=== PATIENT | female | born 1945 | race Caucasian/White ===

== ENCOUNTER 2025-04-17 23:49 | Emergency (ER) | payer MEDICARE ==
[2025-04-18 00:06] VITALS: RESP 18
[2025-04-18] MEDS: DIPH,PERTUS(ACELL)TETVAC-LF 0.5 ML VIAL IM ONE (01:09)
--- NOTE | 2025-04-18 01:49 | CT ---
EXAM: CT Head Without Intravenous Contrast CLINICAL HISTORY: ITS.REASON CT Reason: fall TECHNIQUE: Axial computed tomography images of the head/brain without intravenous contrast. CTDI is 45 mGy and DLP is 1007 mGy-cm. This CT exam was performed using one or more of the following dose reduction techniques: automated exposure control, adjustment of the mA and/or kV according to patient size, and/or use of iterative reconstruction technique. COMPARISON: No relevant prior studies available. FINDINGS: Brain: No hemorrhage or mass effect. Ventricles: No hydrocephalus. Bones/joints: Unremarkable. Soft tissues: Posterior scalp swelling. Sinuses: No air fluid level. Mastoid air cells: Clear. IMPRESSION: No acute findings in the head/brain. EXAM: CT Cervical Spine Without Intravenous Contrast CLINICAL HISTORY: ITS.REASON CT Reason: fall TECHNIQUE: Axial computed tomography images of the cervical spine without intravenous contrast. CTDI is 11 mGy and DLP is 327 mGy-cm. This CT exam was performed using one or more of the following dose reduction techniques: automated exposure control, adjustment of the mA and/or kV according to patient size, and/or use of iterative reconstruction technique. COMPARISON: No relevant prior studies available. FINDINGS: Vertebrae: No acute fracture. Chronic minimal wedging deformities T1, T2, T3, T4. Discs/spinal canal/neural foramina: degenerative changes. Soft tissues: No prevertebral swelling. IMPRESSION: No acute fracture or subluxation.
--- NOTE | 2025-04-18 02:19 | ED ---
Fall HPI - General Chief Complaint: Fall Stated Complaint: Fall Time Seen by Provider: 04/18/25 00:21 Source: EMS Mode of arrival: EMS - History of Present Illness Initial Comments: 79-year-old female presenting with chief complaint of head injury. Patient had a trip and fall and hit the back of her head on a concrete step. No loss of consciousness or blood thinners. She does have a laceration to the back of her scalp. The bleeding is well-controlled at this time. No nausea or vomiting. C-collar was placed by EMS. No numbness or tingling or weakness in the extremities. No extremity pain. No vision or hearing changes. She does endorse a headache. - Related Data Allergies Allergy/AdvReac Type Severity Reaction Status Date / Time No Known Allergies Allergy Verified 04/18/25 00:06 Review of Systems ROS Statement: Those systems with pertinent positive or pertinent negative responses have been documented in the HPI. ROS Other: All systems not noted in ROS Statement are negative. Past Medical History Past Medical History: Hypertension History of Any Multi-Drug Resistant Organisms: None Reported Past Surgical History: Cholecystectomy, Hysterectomy, Tonsillectomy Past Psychological History: Anxiety Smoking Status: Never smoker Past Alcohol Use History: None Reported Past Drug Use History: None Reported General Exam Limitations: no limitations General appearance: alert, in no apparent distress Expanded Head exam: Present: laceration (2 small 1 cm lacerations to the scalp) Eye exam: Present: normal appearance, EOMI. Absent: periorbital swelling Neck exam: Present: normal inspection (Patient in c-collar) Respiratory exam: Absent: respiratory distress Cardiovascular Exam: Present: regular rate Extremities exam: Present: normal inspection, full ROM Neurological exam: Present: alert, oriented X3 Psychiatric exam: Present: normal affect, normal mood Skin exam: Present: warm, dry, normal color Course Vital Signs 04/18/25 04/18/25 04/18/25 00:00 01:06 02:00 Temperature 98.8 F Pulse Rate 78 69 76 Respiratory 18 18 18 Rate Blood Pressure 193/69 173/64 165/66 O2 Sat by Pulse 100 98 98 Oximetry 04/18/25 02:45 Temperature 98.7 F Pulse Rate 74 Respiratory 18 Rate Blood Pressure 160/65 O2 Sat by Pulse 100 Oximetry Procedures - Laceration Laceration #1 Consent Obtained: verbal consent Indication: laceration Site: scalp Size (cm): 1 Description: linear Depth: simple, single layer Type of Sutures: other ([place]) Number of Sutures: 1 Patient Tolerated Procedure: well, no complications Laceration #2 Consent Obtained: verbal consent Indication: laceration Site: scalp Size (cm): 1 Description: linear Depth: simple, single layer Type of Sutures: other (salazar) Number of Sutures: 1 Patient Tolerated Procedure: well, no complications Medical Decision Making - Medical Decision Making Was pt. sent in by a medical professional or institution (CASSIE Murillo, CALL CENTER DISPATCHER, urgent care, hospital, or senior living...) When possible be specific @ -No Did you speak to anyone other than the patient for history (EMS, parent, family, police, friend...)? What history was obtained from this source @ -No Did you review nursing and triage notes (agree or disagree)? Why? @ -I reviewed and agree with nursing and triage notes Were old charts reviewed (outside hosp., previous admission, EMS record, old EKG, old radiological studies, urgent care reports/EKG's, senior living records)? Report findings @ -No old charts were reviewed Differential Diagnosis (chest pain, altered mental status, abdominal pain women, abdominal pain men, vaginal bleeding, weakness, fever, dyspnea, syncope, headache, dizziness, GI bleed, back pain, seizure, CVA, palpatations, mental health, musculoskeletal)? @ -Differential includes uncomplicated head injury, concussion, fracture, hemorrhage, not noninclusive list EKG interpreted by me (3pts min.). @ -As above X-rays interpreted by me (1pt min.). @ -None done CT interpreted by me (1pt min.). @ -CT shows no acute intracranial process and no acute fracture or subluxation of the cervical spine U/S interpreted by me (1pt. min.). @ -None done What testing was considered but not performed or refused? (CT, X-rays, U/S, labs)? Why? @ -None What meds were considered but not given or refused? Why? @ -None Did you discuss the management of the patient with other professionals (professionals i.e. CASSIE Murillo, CALL CENTER DISPATCHER, lab, RT, psych nurse, social work case manager, lawyer probate, teacher, development officer, case preparer and liner)? Give summary @ -No Was smoking cessation discussed for >3mins.? @ -No Was critical care preformed (if so, how long)? @ -No Were there social determinants of health that impacted care today? How? (Homelessness, low income, unemployed, alcoholism, drug addiction, transportation, low edu. Level, literacy, decrease access to med. care, fdc, rehab)? @ -No Was there de-escalation of care discussed even if they declined (Discuss DNR or withdrawal of care, Hospice)? DNR status @ -No What co-morbidities impacted this encounter? (DM, HTN, Smoking, COPD, CAD, Cancer, CVA, ARF, Chemo, Hep., AIDS, mental health diagnosis, sleep apnea, morbid obesity)? @ -None Was patient admitted / discharged? Hospital course, mention meds given and route, prescriptions, significant lab abnormalities, going to OR and other pertinent info. @ -79-year-old female presenting chief complaint of head injury. No loss of consciousness or blood thinners. CT negative for acute intracranial process or cervical spine fracture. She does have 2 small lacerations to the posterior sc alp which required salazar. Patient is educated on supportive management after head injury and alarm symptoms that should prompt reevaluation. Follow-up with PCP. Report back to ER with any new or worsening symptoms. Discussed return parameters and answered all questions. Patient conveyed verbal understanding and agreed to the plan. I discussed this case in detail with my attending Dr. Jay Undiagnosed new problem with uncertain prognosis? @ -No Drug Therapy requiring intensive monitoring for toxicity (Heparin, Nitro, Insulin, Cardizem)? @ -No Were any procedures done? @ -Laceration repair Diagnosis/symptom? @ -Scalp laceration Acute, or Chronic, or Acute on Chronic? @ -Acute Uncomplicated (without systemic symptoms) or Complicated (systemic symptoms)? @ -Uncomplicated Side effects of treatment? @ -No Exacerbation, Progression, or Severe Exacerbation? @ -No Poses a threat to life or bodily function? How? (Chest pain, [place], [place], pneumonia, PE, COPD, DKA, ARF, appy, cholecystitis, CVA, Diverticulitis, Homicidal, Suicidal, threat to staff... and all critical care pts) @ -Unlikely Disposition Clinical Impression: Head injury, Scalp laceration Disposition: HOME SELF-CARE Condition: Good Instructions (If sedation given, give patient instructions): Head Injury (ED), Staple Care (ED), Head Laceration (ED) Additional Instructions: Follow-up with PCP. Report back to ER with any new or worsening symptoms, inclu ding but not limited to vomiting, altered mental status, difficulty arousing from sleep. Do not wet the area for 24 hours. Keep the wound clean and dry. Wash regularly with soap and water. Monitor for signs of infection, including but not limited to redness, swelling, warmth, tenderness, discharge, fever. [place] may be removed in 5 to 7 days Is patient prescribed a controlled substance at d/c from ED?: No Referrals: Nonstaff,Physician [Primary Care Provider] - 1-2 days Time of Disposition: 02:19
[2025-04-18 02:47] VITALS: BP 160/65; PULSE 74; TEMP 98.7
== END 2025-04-18 02:45 | disposition home or self-care (01) ==
LOC: EC 23:49
DX: S01.01XA Laceration without foreign body of scalp, initial encounter (principal); W01.0XXA Fall on same level from slipping, tripping and stumbling without subsequent striking against object, initial encounter
CPT/HCPCS: 12001; 70450; 72125; 99283